=== PATIENT | male | born 1985 | race Caucasian/White ===

== ENCOUNTER 2017-11-28 09:51 | Emergency (ER) | payer BC, SELFPAY ==
--- NOTE | 2017-11-28 10:08 | XR_ITS ---
XR ankle LT min 3V Patient Age: 32 years: Male HISTORY: ITS.REASON: FELL AT HOME TECHNIQUE: 3 views left ankle COMPARISON :None available FINDINGS The left ankle is intact with no fracture nor dislocation. Ankle mortise with normal relationships. The medial, lateral and posterior malleolus intact. Only scant if any soft tissue swelling overlying the lateral malleolus. Dome of talus intact. IMPRESSION: Negative left ankle. No fracture nor dislocation
--- NOTE | 2017-11-28 10:08 | XR_ITS ---
XR humerus RT, XR elbow RT min 3V Patient Age: 32 years: Male HISTORY: ITS.REASON: FELL AT HOME TECHNIQUE: Right elbow: 3 view right elbow Right humerus: 2 views AP lateral COMPARISON :None available ======== RIGHT ELBOW 3 views Right elbow, intact with no fracture nor effusion evident. The joint spaces well-maintained. Bones well mineralized. Anterior fat pad appears normal. Radial head intact. ...... IMPRESSION: RIGHT elbow intact with no fracture evident. ======== RIGHT HUMERUS 2 views . The humerus is intact with no fracture evident. The bones well mineralized and appear satisfactory. The limited views of the elbow unremarkable on this humerus study as well 2 views of right shoulder limited but grossly unremarkable on this humerus study. Small bone island at superior humeral head noted ...... IMPRESSION - RIGHT humerus intact. No fracture No significant acute findings at either right elbow or right humerus
[2017-11-28 10:51] VITALS: BP 135/83; PULSE 91; RESP 20; TEMP 36.7; O2SAT 95; BMI 31.0
--- NOTE | 2017-11-28 11:47 | HMH.EDUTC ---
[facility] [place]ression: Left ankle sprain Qualifiers: Encounter type: initial encounter Involved ligament of ankle: other ligament Qualified Code(s): S93.492A - Sprain of other ligament of left ankle, initial encounter Contusion of right upper arm Qualifiers: Encounter type: initial encounter Qualified Code(s): S40.021A - Contusion of right upper arm, initial encounter Fall down stairs Qualifiers: Encounter type: initial encounter Qualified Code(s): W10.8XXA - Fall (on) (from) other stairs and steps, initial encounter Disposition: Home, Self-Care Condition on Discharge: Good Instructions: DI for Ankle Sprain, DI for Contusion, How To Perform RICE (Rest, Ice, Compress, Elevate), How to Use Crutches Additional Instructions: * weight bearing as tolerated. if painful, don't ambulate. * Rest * ice 15-20 mins 3-4 times a day * Jay wrap and brace on ankle for support and swelling unless in shower. Be sure not too tight but not too loose either * Elevate as discussed as much as possible to help reduce swelling and therefore, pain * Ibuprofen every 6 hours as needed for pain and inflammation. If you need something more, you can take tylenol every 4 hours as needed as long as your primary care provider has told you it is ok to take both. Referrals: Catarino Cannon APRN [Primary Care Provider] - (IMMEDIATELY for new or worsening symptoms OR no noticeable improvement over the next 3-5 days) Time of Disposition: 12:39 Medical Decision Making Vital Signs: 11/28/17 10:51 Temperature 98.1 F Temperature Source Temporal Artery Scan Pulse Rate [Right Radial] 91 H Respiratory Rate 20 Blood Pressure [Right Arm] 135/83 Blood Pressure Mean [Right Arm] 100 Blood Pressure Source [Right Arm] Automatic Cuff Blood Pressure Position [Right Arm] Sitting 02 Sat by Pulse Oximetry 95 Oxygen Delivery Method Room Air - Radiology Data #1 Image(s): Humerus (right), Elbow (right), Ankle (left) Image Reviewed: Yes I have reviewed radiologist's interpretation Preliminary Findings: Normal/NAD - Estuardo Inquiry Pt receiving controlled substance: No [facility] [place] - General Stated complaint: AO 11/28/17@0852 fell hurt right arm and rt. ankle Time Seen by Provider: 11/28/17 11:49 Mode of Arrival: Family Vehicle Source of Information: Patient Limitations: No Limitations Description of Symptoms (Recalled from Triage Doc. by RN): pt fell and injured left ankle and right elbow/humerus. HEENT Symptoms (Recalled from RN notes): No Resp Symptoms (Recalled from RN notes): No Skin Symptoms (Recalled from RN notes): No MS Symptoms (Recalled from RN notes): Yes (left ankle, right elbow/humerus) Functional Status (Recalled from RN notes): na - History of Present Illness Provider Complaint: c/o right upper arm/elbow pain and left ankle pain. Was trying to move a stove into the basement on his own this morning around 0800. Isn't sure what happen but he ended up falling down the steps and stove came down with him. Denies head injury and only concern is right arm and left ankle. Otherwise I am fine . No treatment before arrival. Ambulating but slow . ankle pain worse with ambulation but full ROM. Right UE pain worse with full extension and once this morning, starting to fall limping so used right arm to stabilize self on wall. - Related Data Allergies Allergy/AdvReac Type Severity Reaction Status Date / Time No Known Allergies Allergy Verified 11/28/17 10:56 - Worker's Comp Is this a Worker's Comp case?: No [facility] History I have reviewed the patient's past medical history: Yes (denies PMHx) Medical History: Denies:: Diabetes Mellitus Type 2, Hypertension Laterality Cases: Bilateral: Tonsillectomy - *Social History Smoking Status: Never smoker Alcohol Intake: current Alcohol Intake Frequency:: 0-2 drinks per day - Psychiatric History Expresses thoughts of harming self/others: None Suicide Plan Description: No Plan ROS Obtained
--- NOTE | 2017-11-28 11:50 | ED_ITS ---
[facility] [place] Clinical Impression: Left ankle sprain Qualifiers: Encounter type: initial encounter Involved ligament of ankle: other ligament Qualified Code(s): S93.492A - Sprain of other ligament of left ankle, initial encounter Contusion of right upper arm Qualifiers: Encounter type: initial encounter Qualified Code(s): S40.021A - Contusion of right upper arm, initial encounter Fall down stairs Qualifiers: Encounter type: initial encounter Qualified Code(s): W10.8XXA - Fall (on) (from ) other stairs and steps, initial encounter Disposition: Home, Self-Care Condition on Discharge: Good Instructions: DI for Ankle Sprain, DI for Contusion, How To Perform RICE (Rest , Ice, Compress, Elevate), How to Use Crutches Additional Instructions: * weight bearing as tolerated. if painful, don't ambulate. * Rest * ice 15-20 mins 3-4 times a day * Jay wrap and brace on ankle for support and swelling unless in shower. Be sure not too tight but not too loose either * Elevate as discussed as much as possible to help reduce swelling and therefore , pain * Ibuprofen every 6 hours as needed for pain and inflammation. If you need something more, you can take tylenol every 4 hours as needed as long as your primary care provider has told you it is ok to take both. Referrals: Catarino Cannon APRN [Primary Care Provider] - (IMMEDIATELY for new or worsening symptoms OR no noticeable improvement over the next 3-5 days) Time of Disposition: 12:39 Medical Decision Making Vital Signs: 11/28/17 10:51 Temperature 98.1 F Temperature Source Temporal Artery Scan Pulse Rate [Right Radial] 91 H Respiratory Rate 20 Blood Pressure [Right Arm] 135/83 Blood Pressure Mean [Right Arm] 100 Blood Pressure Source [Right Arm] Automatic Cuff Blood Pressure Position [Right Arm] Sitting 02 Sat by Pulse Oximetry 95 Oxygen Delivery Method Room Air - Radiology Data #1 Image(s): Humerus (right), Elbow (right), Ankle (left) Image Reviewed: Yes I have reviewed radiologist's interpretation Preliminary Findings: Normal/NAD - Estuardo Inquiry Pt receiving controlled substance: No [facility] [place] - General Stated complaint: AO 11/28/17@0852 fell hurt right arm and rt. ankle Time Seen by Provider: 11/28/17 11:49 Mode of Arrival: Family Vehicle Source of Information: Patient Limitations: No Limitations Description of Symptoms (Recalled from Triage Doc. by RN): pt fell and injured left ankle and right elbow/humerus. HEENT Symptoms (Recalled from RN notes): No Resp Symptoms (Recalled from RN notes): No Skin Symptoms (Recalled from RN notes): No MS Symptoms (Recalled from RN notes): Yes (left ankle, right elbow/humerus) Functional Status (Recalled from RN notes): na - History of Present Illness Provider Complaint: c/o right upper arm/elbow pain and left ankle pain. Was trying to move a stove into the basement on his own this morning around 0800. Isn't sure what happen but he ended up falling down the steps and stove came down with him. Denies head injury and only concern is right arm and left ankle. Otherwise I am fine . No treatment before arrival. Ambulating but slow . ankle pain worse with ambulation but full ROM. Right UE pain worse with full extension and once this morning, starting to fall limping so used right arm to stabilize self on wall. - Related Data Allergies Allergy/AdvReac Type Severity Reaction Status Date / Time No Known Allergies Allergy Verified 11/28/17 10:56
[2017-11-28 12:54] VITALS: BP 126/82; PULSE 75; RESP 18; TEMP 36.8; O2SAT 100
== END 2017-11-28 12:55 | disposition home or self-care (01) ==
PROVIDERS: Emergency Provider Nurse Practitioner Family; Family Provider Emergency Medicine; PCP Nurse Practitioner Family
DX: S93.492A Sprain of other ligament of left ankle, initial encounter (principal); S40.021A Contusion of right upper arm, initial encounter; W10.8XXA Fall (on) (from) other stairs and steps, initial encounter
CPT/HCPCS: 73060; 73080; 73610; 99202

== ENCOUNTER → 2019-08-17 09:37 | Outpatient (CLI) | payer BC, SELFPAY ==
[2019-08-17 10:39] LABS: Basophils % 0.4 % (0.1-2.0); Eosinophils # 0.1 K/mm3 (0.0-0.4); Eosinophils % 2.5 % (0.1-12.0); Hematocrit 45.5 % (42.0-52.0); Hemoglobin 15.7 g/dL (14.1-18.0); Lymphocytes # 1.5 K/mm3 (0.7-4.5); Lymphocytes % 27.6 % (10-50); Mean Corpuscular HGB Conc 34.4 g/dL (31.8-35.4); Mean Corpuscular Hemoglobin 31.3 pg (27.0-31.2); Mean Platelet Volume 8.5 fl (7.4-10.4); Monocytes # 0.4 K/mm3 (0.1-1.0); Monocytes % 6.7 % (1.7-9.3); Neutrophils # 3.4 K/mm3 (1.8-7.8); Neutrophils % 62.9 % (37.0-80.0); Platelet Count 217 K/mm3 (142-424); Red Cell Distribution Width 12.8 % (11.5-17.5); White Blood Count 5.4 K/mm3 (4.8-10.8)
[2019-08-17 12:31] LABS: Alanine Aminotransferase 50 U/L (12-78); Albumin Level 4.4 gm/dL (3.4-5.0); Alkaline Phosphatase 64 U/L (46-116); Anion Gap 14.5 mEq/L (5-15); Aspartate Amino Transferase 24 U/L (15-37); Bilirubin,Direct 0.1 mg/dL (0.0-0.2); Bilirubin,Indirect 0.4 mg/dL (0.0-0.9); Bilirubin,Total 0.5 mg/dL (0.2-1.0); Blood Urea Nitrogen 12 mg/dL (7-18); Calcium 9.7 mg/dL (8.5-10.1); Carbon Dioxide 27 mmol/L (21.0-32.0); Chloride 103 mmol/L (98-107); Chol/HDL Ratio 4.6 (1-3.5); Cholesterol 166 mg/dL (140-200); Creatinine,Serum 1.13 mg/dL (0.70-1.30); Estimated Glomerular Filt Rate 75 ml/min (>60); GFR (African American) 90 ML/MIN (>60); Glucose 82 mg/dL (74-106); HDL Cholesterol 36 mg/dL (27-67); LDL Cholesterol 89 mg/dL (0-130); Potassium 4.5 mmoL/L (3.5-5.1); Sodium 140 mmol/L (136-145); Thyroid Stimulating Hormone 1.12 uIU/ml (0.358-3.740); Total Protein,Serum 7.4 gm/dL (6.4-8.2); Triglycerides 204 mg/dL (30-200); VLDL Cholesterol 41 mg/dL (0-40)
== END ==
PROVIDERS: Visit Provider Nurse Practitioner Family
DX: R06.00 Dyspnea, unspecified (principal); R07.9 Chest pain, unspecified; R00.0 Tachycardia, unspecified; R06.09 Other forms of dyspnea; R07.8 Other chest pain; R07.89 Other chest pain
CPT/HCPCS: 36415; 80048; 80061; 80076; 84439; 84443; 85025

== ENCOUNTER → 2019-08-25 10:05 | Outpatient (CLI) | payer BC, SELFPAY ==
--- NOTE | 2019-08-25 10:08 | CA_ITS ---
APPROVED REPORT Exam: Exercise Treadmill Technologist: Nasima Gong, Ht: 5 ft 9 in Wt: 212 lbs BSA: 2.12 m2 HR: 71 bpm BP: 123/89 mmHg Rhythm: NSR Medical History Medical History: HTN Medications: Metoprolol,,,,, BaBY ASA,,,,, Cardiac Risk Factors: HTN Stress Test Details Test: Rey HR Resting HR: 85 bpm Max Heart Rate (APMHR): 187 bpm Max HR Achieved: 175 bpm Target HR (85% APMHR): 158 bpm % of APMHR: 93 Recovery HR: 146 bpm BP Resting BP: 123.0/89.0 mmHg Max BP: 160.0/90.0 mmHg Recovery BP: 159.0/78.0 mmHg ECG Resting ECG: NSR Clinical Reason for Termination: Dyspnea Exercise duration: 10:31 min Highest Stage Achieved: Exercise capacity: 12.8 METs Stress ECG Conclusion MAX HEART RATE 175 BPM WHICIS 110% OF PM FOR AGE. METS = 12.8. TEST STOPPED DUE TO SOA AND LEG PAIN. NO CHEST PAIN. RARE PVC AT PEAK STRESS. NO ST-T CHANGES. NEGATIVE TEST Test Summary REST . . . . . . . Standing REST . . . . . . . Sitting REST 10:01 0.0 0.0 85 . 123/ 89 . . Stage 1 01:00 10.0 1.7 101 . . . . Stage 1 02:00 10.0 1.7 106 . . . . Stage 1 03:00 10.0 1.7 110 . 130/ 90 . . Stage 2 01:00 12.0 2.5 119 . . . . Stage 2 02:00 12.0 2.5 129 . . . . Stage 2 03:00 12.0 2.5 123 . 152/ 90 . . Stage 3 01:00 14.0 3.4 136 . . . . Stage 3 02:00 14.0 3.4 145 . . . . Stage 3 03:00 14.0 3.4 150 . 160/ 90 . . Stage 4 01:00 16.0 4.2 169 . . . . Stage 4 01:31 16.0 4.2 175 . . . Stop exercise at 10:31 RECOVERY 01:00 0.0 0.0 159 . . . . RECOVERY 02:00 0.0 0.0 144 . . . . RECOVERY 03:00 0.0 0.0 131 . . . . RECOVERY 04:00 0.0 0.0 121 . 159/ 78 . . RECOVERY 05:00 0.0 0.0 117 . 159/ 78 . . RECOVERY 05:18 0.0 0.0 118 . 141/ 83 . . Electronically signed by : Gabriel Robison, 08/25/2019 15:30:17
== END ==
PROVIDERS: PCP Emergency Medicine; Visit Provider Nurse Practitioner Family
DX: R06.00 Dyspnea, unspecified (principal); R07.9 Chest pain, unspecified
CPT/HCPCS: 93017; 93306

== ENCOUNTER → 2019-10-12 06:39 | Outpatient (CLI) | payer BC, SELFPAY ==
--- NOTE | 2019-10-12 | CA_ITS ---
APPROVED REPORT Exam: Pharmacologic Technologist: Rosalina Hurst Ht: 5 ft 9 in Wt: 220 lbs BSA: 2.15 m2 HR: 95 bpm BP: 126/88 mmHg Indications: CP, SOB Medical History Medications: Metoprolol,,,,, Asa,,,,, Allergies: No known drug allergies Cardiac Risk Factors: HTN, FHX of CAD, Smoking Stress Test Details Test: LEXISCAN HR Resting HR: 96 bpm Max Heart Rate (APMHR): 187 bpm Max HR Achieved: 128 bpm Target HR (85% APMHR): 158 bpm % of APMHR: 68 Recovery HR: 103 bpm BP Resting BP: 126/88 mmHg Max BP: 152/84 mmHg Recovery BP: 128.0/84.0 mmHg ECG Resting ECG: NSR Clinical Exercise duration: 04:00 min Highest Stage Achieved: Exercise capacity: 1.0 METs Stress ECG Conclusion Patient was switched from exercise to Nia due to abrupt stop due to leg pain. Miild malaise, mild pain below xiphoid process. No arrhythmias or ectopy. No significant ST changes. Unremarkable Lexiscan stress. Images reported seperately. Test Summary REST 02:05 . . 96 . 126/ 88 . . Stage 1 01:00 . . 126 . . . . Stage 2 01:00 . . 118 . 134/ 90 . . Stage 3 01:00 . . 108 . 152/ 84 . . Stage 4 01:00 . . 106 . 128/ 84 . Stop exercise at 04:00 RECOVERY 01:00 . . 101 . 128/ 84 . . RECOVERY 02:00 . . 99 . 126/ 89 . . RECOVERY 03:00 . . 99 . 126/ 89 . . RECOVERY 04:00 . . 93 . 127/ 90 . . RECOVERY 05:00 . . 102 . 124/ 89 . . RECOVERY 05:17 . . 96 . 124/ 89 . . Electronically signed by : Chacorta Kevin, 10/12/2019 13:39:00
--- NOTE | 2019-10-12 06:47 | NM_ITS ---
APPROVED REPORT Exam: Nuclear Stress Test Indication: Chest pain, SOB, HTN, Tobacco use, Family history Patient Location: Outpatient Stress Tech: Rosalina Hurst ID Tech:Yamileth Sesay, ARRT, RT (R)(N) Ht: 5 ft 9 in Wt: 220 lbs HR: 75 bpm BP: 158/98 mmHg BSA: 2.15 m2 BMI: 32.4 History: Chest pain, SOB, HTN, Tobacco use, Family history Procedure: Patient received a 0.4 mg of intravenous Lexiscan, resting heart rate 75 bpm, resting blood pressure 158/98 mmHg, with Lexiscan maximum heart rate achived was 114 bpm which is Less than 85 % of the maximum predicted heart rate and blood pressure was 170/86 mmHg. Electrocardiogram Resting electrocardiogram showed sinus rhythm, with Lexiscan there is less than 1.[address] segment depression noted from the baseline EKG. The EKG portion of the Lexiscan Myoview is nondiagnostic. Cardiac Stress and Resting SPECT Images: Cardiac Stress and Resting SPECT images were obtained using technetium 99m Myoview 31.8 mCi stress and 10.68 mCi at rest. Gated SPECT with analysis of segmental wall motion and calculation of the ejection fraction also done. Cardiac stress and resting SPECT images show mild fixed defect in the inferior wall with normal contractility and the gated SPECT is likely secondary to soft tissue attenuation, no reversible ischemia seen. Computer derived ejection fraction is 55% with no regional wall motion abnormality, right ventricle is normal size and contractility. Conclusion: 1. The EKG portion of the Lexiscan Myoview is nondiagnostic. 2. No scintigraphic evidence of reversible ischemia seen, computer derived ejection fraction is 55% with no regional wall motion abnormality, right ventricle is normal size and contractility. 3. Likely normal Lexiscan Myoview study. Electronically signed by : Chacorta Kevin, 10/12/2019 14:31:19
--- NOTE | 2019-10-12 07:00 | HMH.ITSHM ---
Current Home Medications as stated by this patient Amol Swift or insurance healthcare representative. []METOPROLOL ASA
== END ==
PROVIDERS: PCP Emergency Medicine; Visit Provider Urology
DX: R06.09 Other forms of dyspnea (principal); R07.89 Other chest pain
CPT/HCPCS: 78452; 93017; A9502; J2785

== ENCOUNTER → 2019-11-28 08:38 | Outpatient (CLI) | payer BC, SELFPAY ==
[2019-11-28 10:34] LABS: Anion Gap 14.6 mEq/L (5-15); Blood Urea Nitrogen 9 mg/dL (7-18); Calcium 9.1 mg/dL (8.5-10.1); Carbon Dioxide 27 mmol/L (21.0-32.0); Chloride 104 mmol/L (98-107); Creatinine,Serum 1.24 mg/dL (0.70-1.30); Estimated Glomerular Filt Rate 67 ml/min (>60); GFR (African American) 81 ML/MIN (>60); Glucose 97 mg/dL (74-106); Potassium 4.6 mmoL/L (3.5-5.1); Sodium 141 mmol/L (136-145)
== END ==
PROVIDERS: Visit Provider Physician Assistant
DX: R00.2 Palpitations (principal); R06.09 Other forms of dyspnea; R07.89 Other chest pain
CPT/HCPCS: 36415; 80048

== ENCOUNTER → 2019-12-20 14:14 | Outpatient (CLI) | payer BC, SELFPAY ==
--- NOTE | 2019-12-20 14:15 | MR_ITS ---
PROCEDURE: MR KNEE LT WO CON CLINICAL INDICATION: Left knee injury Left lateral knee pain COMPARISON: XR KNEE LT 3V from 12/01/2019 TECHNIQUE: Routine multiplanar multi echo sequences are performed without gadolinium enhancement. FINDINGS: The cruciate ligaments and medial collateral ligament have an unremarkable appearance. There is slight increase signal intensity of the fibula low collateral ligament suggesting a mild sprain. No evidence of meniscal tear the. The patellar tendon and quadriceps tendon are intact. Patellar cartilage is preserved. There is increased T2 signal involving the anterior aspect of the lateral tibial plateau with a curvilinear area of decreased T1 and increased T2 signal in the subcortical region consistent with a nondepressed lateral tibial plateau fracture. Along the medial aspect of the distal femur there is a well-circumscribed sclerotic lesion as described on the previous radiograph. This is cortical in nature hypointense on T1 and T2 in may be due to a regressed nonossifying fibroma. Continued radiographic follow-up suggested. IMPRESSION: 1. Nondepressed lateral tibial plateau fracture involving the anterior aspect of the lateral tibial plateau with associated bone bruise. 2. Mild sprain of the fibular collateral ligament. 3. No meniscal tear or cruciate ligament tear apparent. 4. Benign-appearing sclerotic lesion of the distal femur medially Dictated by: Tung Interiano MD 12/22/2019 07:03 Electronically signed by Tung Interiano MD in [place] 12/22/2019 07:03
== END ==
PROVIDERS: PCP Physician Assistant; Visit Provider Orthopaedic Surgery
DX: S89.92XA Unspecified injury of left lower leg, initial encounter (principal)
CPT/HCPCS: 73721

== ENCOUNTER 2019-12-26 10:37 | Outpatient (RCR) | payer BC, SELFPAY | END 2019-12-26 11:00 | disposition home or self-care (01) | LOC: PT 10:37 | PROVIDERS: Visit Provider Orthopaedic Surgery | DX: S89.92XD Unspecified injury of left lower leg, subsequent encounter | CPT/HCPCS: 97760 ==

== ENCOUNTER → 2020-01-31 12:32 | Outpatient (CLI) | payer BC, SELFPAY ==
--- NOTE | 2020-01-31 12:36 | XR_ITS ---
PROCEDURE: XR KNEE LT 3V CLINICAL INDICATION: left tibial plateau fracture fu Follow-up fracture, pain COMPARISON: XR KNEE LT 3V from 12/01/2019 MR KNEE LT WO CON from 12/20/2019 FINDINGS: No obvious fracture or dislocation. The joint spaces are well-preserved. No significant degenerative/arthritic changes. No erosive changes evident. Other findings:No change in the sclerotic lesion of the distal femur IMPRESSION: The tibial plateau fracture noted on the recent MRI is below limits of resolution on the plain film. No significant change from the previous exam Dictated by: Tung Interiano MD 01/31/2020 13:43 Electronically signed by Tung Interiano MD in [place] 01/31/2020 13:43
== END ==
PROVIDERS: PCP Emergency Medicine; Visit Provider Orthopaedic Surgery
DX: S82.142A Displaced bicondylar fracture of left tibia, initial encounter for closed fracture (principal)
CPT/HCPCS: 73562

== ENCOUNTER → 2020-03-12 13:55 | Outpatient (CLI) | payer BC, SELFPAY ==
--- NOTE | 2020-03-12 13:58 | XR_ITS ---
PROCEDURE: XR KNEE LT 3V CLINICAL INDICATION: left tibial plateau fracture follow up COMPARISON: XR KNEE LT 3V from 12/01/2019 MR KNEE LT WO CON from 12/20/2019 XR KNEE LT 3V from 01/31/2020 FINDINGS: The subtle lateral tibial plateau fracture seen on the previous MRI scan 12/20/2019 is below resolution on the current image. There is no deformity or abnormal sclerosis of the lateral tibial plateau. The medial tibial plateau appears normal. The head of the fibula is normal. The femoral condyles are unremarkable. Again noted is the somewhat lobulated extrinsic mildly sclerotic lesion of the diametaphyseal zone of the distal femur and a nonossifying fibroma is a possibility. Melorheostosis is a consideration as well though usually this causes a more sclerotic appearance. The patella is intact, see no effusion. The joint spaces are well-preserved. No significant degenerative/arthritic changes. No erosive changes evident. Other findings:None. IMPRESSION: No acute findings. No residual deformity or trabecular alteration of the lateral tibial plateau fracture seen on the previous MRI scan. Dictated by: Dr. Cj Gaines MD 03/12/2020 14:[address] Cj Gaines MD in [place] 03/12/2020 14:22
== END ==
PROVIDERS: PCP Emergency Medicine; Visit Provider Orthopaedic Surgery
DX: S82.142A Displaced bicondylar fracture of left tibia, initial encounter for closed fracture (principal)
CPT/HCPCS: 73562

== ENCOUNTER → 2020-03-29 11:17 | Outpatient (CLI) | payer BC, SELFPAY | PROVIDERS: PCP Emergency Medicine; Visit Provider Nurse Practitioner Family | DX: G47.30 Sleep apnea, unspecified (principal); R40.0 Somnolence; R06.83 Snoring; R53.83 Other fatigue; I10 Essential (primary) hypertension; R60.9 Edema, unspecified | CPT/HCPCS: 95806 ==

== ENCOUNTER 2020-05-10 01:25 | Emergency (ER) | payer BC, SELFPAY ==
[2020-05-10 01:36] VITALS: BP 159/101; PULSE 111; RESP 16; TEMP 38.6; O2SAT 98; BMI 32.8
--- NOTE | 2020-05-10 01:41 | XR_ITS ---
PROCEDURE: XR CHEST PORTABLE CLINICAL HISTORY: fever unk origin COMPARISON: No exams were available for comparison FINDINGS: The cardiomediastinal silhouette and pulmonary vascularity are within normal limits. The lungs are clear without infiltrates, suspicious nodules, or pleural effusions. No acute bony abnormalities. IMPRESSION: No acute findings. Dictated by: Dr. Cj Gaines MD 05/10/2020 10:[address] Cj Gaines MD in [place] 05/10/2020 10:23
--- NOTE | 2020-05-10 01:41 | CT_ITS ---
PROCEDURE: CT ABDOMEN PELVIS W CON CLINICAL INDICATION: band-like pain around abd Low back pain, mid to lower abdominal pain with fever COMPARISON: PELWO CT PELVIS W/O CONTRAST from 09/12/2013 TECHNIQUE: IV Contrast: 75ML OPTIRAY 350 Oral Contrast None Axial images obtained with sagittal and coronal reformats. All CT scans at the facility use one or more dose reduction, viz: automated exposure control, ma/kV adjustment per patient size (including targeted exams where dose is matched to indication, i.e. head), or iterative reconstruction technique. FINDINGS: LOWER THORAX: No acute finding ABDOMEN & PELVIS: The liver, adrenal glands, pancreas, and kidneys have an unremarkable appearance. There is mild splenomegaly at 14 cm. No intestinal obstruction or free air. There is mild amount of retained colonic feces. Unremarkable appendix. There are several small mesenteric and right lower quadrant lymph nodes which measure up to 1.5 cm. No pelvic mass or abnormal fluid collection. No acute bony findings. There is a stable sclerotic focus involving the ilium on the left not significantly changed from 09/12/2013 and a stable small lucency of the right ilium also not significantly changed. Small sclerotic focus involves the right femoral head unchanged consistent with bone island.. Small right inguinal hernia containing fat. IMPRESSION: 1. Several small scattered mesenteric and right lower quadrant lymph nodes nonspecific but could be seen with mesenteric adenitis. 2. Mild amount of retained colonic feces. 3. Other nonacute findings as described above. Dictated by: Tung Interiano MD 05/10/2020 05:20 Electronically signed by Tung Interiano MD in [place] 05/10/2020 05:20
[2020-05-10 01:58] LABS: Basophils % 0.5 % (0.1-2.0); Eosinophils # 0.3 K/mm3 (0.0-0.4); Eosinophils % 3.1 % (0.1-12.0); Hematocrit 40.3 % (42.0-52.0); Hemoglobin 14.9 g/dL (14.1-18.0); Lymphocytes # 1.7 K/mm3 (0.7-4.5); Lymphocytes % 19.7 % (10-50); Mean Corpuscular HGB Conc 36.9 g/dL (31.8-35.4); Mean Corpuscular Hemoglobin 33.1 pg (27.0-31.2); Mean Corpuscular Volume 89.9 fl (80-94); Mean Platelet Volume 7.6 fl (7.4-10.4); Monocytes # 0.6 K/mm3 (0.1-1.0); Monocytes % 6.8 % (1.7-9.3); Neutrophils # 6.1 K/mm3 (1.8-7.8); Platelet Count 174 K/mm3 (142-424); Red Blood Count 4.48 M/mm3 (4.60-6.20); Red Cell Distribution Width 13.6 % (11.5-17.5); White Blood Count 8.7 K/mm3 (4.8-10.8)
[2020-05-10 02:10] VITALS: BP 147/89; PULSE 81; RESP 18; O2SAT 98
[2020-05-10 02:10] LABS: Chloride 103 mmol/L (98-107)
[2020-05-10 02:11] LABS: Potassium 3.8 mmoL/L (3.5-5.1); Sodium 138 mmol/L (136-145)
[2020-05-10 02:13] LABS: Amylase 55 U/L (30-110); Lactic Acid 0.8 mmol/L (0.7-2.1)
[2020-05-10 02:14] LABS: Alanine Aminotransferase 54 U/L (12-78); Albumin Level 4.4 g/dl (3.5-5.0); Albumin/Globulin Ratio 1.5 (1.1-1.8); Alkaline Phosphatase 70 U/L (38-126); Anion Gap 11.8 mEq/L (5-15); Aspartate Amino Transferase 39 U/L (17-59); Bilirubin,Total 0.6 mg/dl (0.2-1.3); Blood Urea Nitrogen 10 mg/dl (9-20); Calcium 9.3 mg/dl (8.4-10.2); Carbon Dioxide 27 mmol/L (22.0-30.0); Creatinine Clearance Estimated 136 mL/min (50-200); Estimated Glomerular Filt Rate 77 ml/min (>60); GFR (African American) 93 ML/MIN (>60); Glucose 117 mg/dl (74-100); Lipase 86 U/L (23-300); Total Protein,Serum 7.4 g/dl (6.3-8.2)
--- NOTE | 2020-05-10 02:25 | HMH.EDFEV ---
ED Disposition Clinical Impression: Acute febrile illness, Acute mesenteric adenitis Disposition: Home, Self-Care Condition on Discharge: Good Instructions: DI for Fever (Symptom) -- Adult Additional Instructions: fluids and see pcp for follo wup Prescriptions: levoFLOXacin [Levaquin 500mg tab] 500 mg PO DAILY #7 tab Transmission Status: Pending to [id number] Referrals: Willy Dorsey MD [Primary Care Provider] - - Critical Care Critical Care Time: No Attestation: On 05/10/20, the high probability of a clinically significant, sudden or life threatening deterioration of the following system(s) required my full and direct attention, intervention and personal management. The time I documented below is in addition to time spent performing reported procedures but includes the following listed in this critical care notation. Medical Decision Making - Medical Records Medical records reviewed: Yes: I reviewed the patient's medical records. - Estuardo Inquiry Pt receiving controlled substance: No Vital Signs: 05/10/20 01:36 Temperature 101.4 F H Temperature Source Oral Pulse Rate [Right Brachial] 111 H Respiratory Rate 16 Blood Pressure [Right Arm] 159/101 H Blood Pressure Mean [Right Arm] 120 Blood Pressure Source [Right Arm] Automatic Cuff Blood Pressure Position [Right Arm] Sitting 02 Sat by Pulse Oximetry 98 Oxygen Delivery Method Room Air - Lab Data Lab results reviewed: Yes: I reviewed the patient's lab results. Lab Results 05/10/20 01:45: WBC 8.7, RBC 4.48 L, Hgb 14.9, Hct 40.3 L, MCV 89.9, MCH 33.1 H, MCHC 36.9 H, RDW 13.6, Plt Count 174, MPV 7.6, Neut % (Auto) 70.0, Lymph % (Auto) 19.7, [place] % (Auto) 6.8, Eos % (Auto) 3.1, Baso % (Auto) 0.5, Neut # (Auto) 6.1, Lymph # (Auto) 1.7, [place] # (Auto) 0.6, Eos # (Auto) 0.3, Baso # (Auto) 0.0 05/10/20 01:45: Sodium 138, Potassium 3.8, Chloride 103, Carbon Dioxide 27, Anion Gap 11.8, BUN 10, Creatinine 1.10, Estimated Creat Clear 136, Estimated GFR 77, Est GFR ( Amer) 93, Glucose 117 H, Calcium 9.3, Total Bilirubin 0.6, AST 39, ALT 54, Alkaline Phosphatase 70, Troponin I < 0.01, Total Protein 7.4, Albumin 4.4, Globulin 3.0, Albumin/Globulin Ratio 1.5, Amylase 55, Lipase 86 05/10/20 01:45: Lactate 0.8 05/10/20 03:08: Urine Color Yellow, Urine Appearance Clear, Urine pH 6.0, Ur Specific [place] <= 1.005, Urine Protein Negative, Urine Glucose (UA) Negative, Urine Ketones Negative, Urine Blood Negative, Urine Nitrate Negative, Urine Bilirubin Negative, Urine Urobilinogen 0.2, Ur Leukocyte Esterase Negative, Urine WBC Occasional, Urine Bacteria Trace 05/10/20 03:08: Influenza Type A Ag Negative, Influenza Type B Ag Negative 05/10/20 03:08: Group A Strep Rapid Negative Result diagrams: 05/10/20 01:45 05/10/20 01:45 Orders (Tests/Meds): ED MEDICATIONS Generic Name Dose Route Start Last Admin Trade Name Freq PRN Reason Stop Dose Admin Sodium Chloride 1,000 mls @ 999 mls/hr 05/10/20 02:00 05/10/20 01:48 Sod Chlor 0.9% 1000ml Bag IV 05/10/20 03:00 999 mls/hr .Q1H1M [facility] Administration Discontinued Medications Generic Name Dose Route Start Last Admin Trade Name Freq PRN Reason Stop Dose Admin Acetaminophen 1,000 mg 05/10/20 01:46 05/10/20 01:48 Tylenol 500mg Tablet PO 05/10/20 01:47 1,000 mg ONCE ONE Administration Ketorolac Tromethamine 30 mg 05/10/20 01:46 05/10/20 01:48 Toradol 30mg/Ml Vial IV 05/10/20 01:47 30 mg ONCE ONE Administration Methylprednisolone Sodium Succinate 125 mg 05/10/20 01:46 05/10/20 01:48 Solu-Medrol 125mg/2ml Vial IV 05/10/20 01:47 125 mg ONCE ONE Administration ORDERS Category Date Time Status CT abdomen pelvis w con Stat Cat Scan 05/10/20 01:41 Ordered XR chest portable Stat Exams 05/10/20 01:41 Ordered SARS-CoV-2, JEOVANY Stat Lab 05/10/20 02:43 Received Troponin I Q3H Lab 05/10/20 04:45 Ordered Troponin I Q3H Lab 05/10/20 07:45 Ordered Strep Scr
[2020-05-10 02:33] LABS: Troponin I < 0.01 ng/ml (0.00-0.034)
[2020-05-10 02:35] VITALS: BP 141/73; PULSE 75; RESP 19; O2SAT 99
--- NOTE | 2020-05-10 02:45 | PC.NURSE ---
pt with rad
--- NOTE | 2020-05-10 03:12 | PC.NURSE ---
return from rad at this time
--- NOTE | 2020-05-10 03:13 | PC.NURSE ---
swabs and urine sent to lab
[2020-05-10 03:15] LABS: Microscopic, Urine URINE MICROSCOPIC (MICROSCOPIC)
[2020-05-10 03:27] VITALS: BP 150/79; PULSE 80; RESP 16; TEMP 37.4; O2SAT 99
[2020-05-10 03:38] LABS: Strep Scrn Group A (Rapid) Negative (Negative)
[2020-05-10 03:40] LABS: Appearance,Urine CLEAR (Clear); Bilirubin,Urine Negative (Negative); Blood, Urine Negative (Negative); Color,Urine YELLOW (Yellow); Glucose,Urine (UA) Negative (Negative); Ketones,Urine Negative (Negative); Leukocyte Esterase,Urine Negative (Negative); Nitrate,Urine Negative (Negative); Protein,Urine Negative (Negative); Specific Gravity, Urine <= 1.005 (1.005-1.030); Urobilinogen,Urine 0.2 EU/dl (0.2)
[2020-05-10 03:47] LABS: Bacteria,Urine Trace /lpf; WBC,Urine Occasional #/hpf (0-3)
[2020-05-10 04:13] VITALS: BP 142/79; PULSE 81; RESP 16; TEMP 36.8; O2SAT 99
[2020-05-11 13:00] LABS: Covid-19 Nasal PCR Sendout Lex Not Detected
== END 2020-05-10 04:15 | disposition home or self-care (01) ==
PROVIDERS: Emergency Provider Emergency Medicine; PCP Emergency Medicine
DX: I88.0 Nonspecific mesenteric lymphadenitis (principal)
CPT/HCPCS: 71045; 74177; 80053; 81001; 82150; 83605; 83690; 84484; 85025; 87275; 87276; 87430; 96365; 96375; 99283; 99284; Q9967; U0004

== ENCOUNTER → 2020-08-05 16:51 | Outpatient (CLI) | payer OTHER, SELFPAY | PROVIDERS: PCP Physician Assistant; Visit Provider Physician Assistant | DX: Z03.818 Encounter for observation for suspected exposure to other biological agents ruled out (principal) | CPT/HCPCS: U0003 ==

== ENCOUNTER → 2021-10-20 10:44 | Outpatient (CLI) | payer OTHER, SELFPAY ==
--- NOTE | 2021-10-20 10:44 | FL_ITS ---
PROCEDURE: FL BARIUM SWALLOW MODIFIED CLINICAL INDICATION: Dysphagia COMPARISON: No exams were available for comparison TECHNIQUE: Patient administered varying consistencies of barium contrast, while viewed in lateral position under real-time fluoroscopy with cine recording. FLUOROSCOPY TIME: The study was performed in conjunction with speech pathologist. Please see that report & recommendations. FINDINGS: Patient was given varying consistencies of barium. No aspiration or penetration. No significant stasis or delay.. IMPRESSION: Unremarkable modified barium swallow. Please see speech pathologist report and recommendations. Dictated by: Tung Interiano MD 10/21/2021 09:08 Tung Interiano MD in [place] 10/21/2021 09:08
--- NOTE | 2021-10-20 11:31 | HMH.SLMBS2 ---
Speech & Language Evaluation Speech/Language Mod Barium Swallow Start: 10/20/21 11:15 Freq: once Status: Complete Protocol: Document 10/20/21 11:15 TANIAYENYCHARLENENABOR (Rec: 10/20/21 11:31 CWGIANNAEIN [id number]) General Information General Current Food Consistancy Regular,Thin Liquids Dentition Good Dentition Oxygen Status Room Air Patient Orientation Person,Place,Time,Situation Ability to Follow Directions Excellent Communication Ability No Impairment MBS Recommendations Diet Dietary Recommendations Regular,Thin Liquids Treatment/Strategies Strategy/Precaution Recommend Sitting Upright (90 deg) Referrals/Other Recommended Referrals GI Consult Mod Barium Swallow Impressions Summary and Impressions Oral Phase Impression No Impairment (WFL) Oral Phase Summary Adequate mastication, no oral residue noted. Pharyngeal Phase Impression No Impairment (WFL) Pharyngeal Phase Summary No penetration or aspiration noted on the study, no pharyngeal residue present. Speech/Language MBS Assessment/Goals/Plan Assessment Date of Evaluation: 10/20/21 Evaluation Type Initial Certification Assessment/Problems Sensation of food and pills sticking per pt report. Does Patient Qualify for Service No Qualify/Failure Comment Swallow function is WNL, no further skilled speech therapy services warranted at this time. Recommendations PHYSICIAN CERTIFICATION: The specified therapy services are required, authorized, and reviewed every 30 days. Diet Recommendations Normal Liquid Type Recommendations Normal/Thin Dysphagia Swallow Precautions/Strategies Sitting Upright (90 deg) Plan Pt/Guardian verbally ack understanding Yes of dx/prognosis/goals Pt/Guardian verbally ack understanding Yes of/consent to tx prog G -code Required No Education Instructions provided MBSS results, GI recommended referral. Pt/Caregiver able to recall information Able to recall/restate Reinforcement needed No Mod Barium Swallow Setup Exam Setup Level of Consciousness Awake,Alert Position (degrees) 90 Mod Barium Swallow-Lat View Textures Lateral View Food Presentation Thin Liquid via Cup,Pureed Food- Thin,Mech. Soft Food- Regular,Barium Tablet,Regular Food,Pudding Oral Phase Labial Closure No Impairment (WFL) Bolus Formation Pooling L/R No Impairment (WFL) Bolus Formation under Tongue No Impairment (WFL) Bolus Format
== END ==
PROVIDERS: PCP Physician Assistant; Visit Provider Nurse Practitioner Family
DX: R13.10 Dysphagia, unspecified (principal)
CPT/HCPCS: 70371; 92611

== ENCOUNTER 2022-11-26 17:54 | Emergency (ER) | payer BC, SELFPAY ==
--- NOTE | 2022-11-26 18:07 | XR_ITS ---
PROCEDURE INFORMATION: Exam: XR Right Forearm Exam date and time: 11/26/2022 6:15 PM Age: 37 years old Clinical indication: Pain; Lower or forearm; Right; Additional info: Pain. Fall. Posterior elbow/forearm pain TECHNIQUE: Imaging protocol: Radiologic exam of the Right forearm. Views: 2 views. COMPARISON: CR XR HAND RT MIN 3V 11/26/2022 6:13 PM FINDINGS: Bones/joints: The osseous structures of the forearm are unremarkable. The distal radius and the distal ulna are unremarkable. Visualized portions of the carpus normal. The distal radial ulnar joint normal. Visualized portions of the elbow normal. Soft tissues: Normal. IMPRESSION: Normal forearm. No fracture. No foreign body.
--- NOTE | 2022-11-26 18:07 | XR_ITS ---
PROCEDURE INFORMATION: Exam: XR Right Elbow Exam date and time: 11/26/2022 6:16 PM Age: 37 years old Clinical indication: Pain; Elbow; Right; Additional info: Pain. Fall. Posterior elbow/forearm pain TECHNIQUE: Imaging protocol: Radiologic exam of the Right elbow. Views: 3 or more views. COMPARISON: CR ELBOWCMRT XR elbow RT min 3V 11/28/2017 11:40 AM FINDINGS: Bones/joints: No fracture. No displacement of the posterior fat pad. Radial head unremarkable. Medial and lateral epicondyles normal. Soft tissues: Normal. Other findings: medial and lateral columns normal. IMPRESSION: No fracture.
--- NOTE | 2022-11-26 18:07 | XR_ITS ---
PROCEDURE INFORMATION: Exam: XR Right Wrist Exam date and time: 11/26/2022 6:11 PM Age: 37 years old Clinical indication: Pain; Wrist; Right; Additional info: Pain. Fall. Posterior elbow/forearm pain TECHNIQUE: Imaging protocol: Radiologic exam of the Right wrist. Views: 3 or more views. COMPARISON: CR ELBOWCMRT XR elbow RT min 3V 11/28/2017 11:40 AM FINDINGS: Bones/joints: Radial ulnar joint normal. Carpus is normal. Metacarpals normal. Visualized portions of the phalanges normal. No triquetral fracture. Soft tissues: Soft tissue swelling about the pronator quadratus muscle although a fracture is not visualized. Correlate clinically. Consider CT if indicated. IMPRESSION: 1. Soft tissue swelling about the pronator quadratus muscle although a fracture is not visualized. Correlate clinically. Consider CT if indicated. 2. No clearly visualized fracture.impression.
--- NOTE | 2022-11-26 18:07 | XR_ITS ---
PROCEDURE INFORMATION: Exam: XR Right Hand Exam date and time: 11/26/2022 6:13 PM Age: 37 years old Clinical indication: Pain; Hand; Right; Additional info: Pain. Fall. Posterior elbow/forearm pain TECHNIQUE: Imaging protocol: Radiologic exam of the Right hand. Views: 3 or more views. COMPARISON: CR XR WRIST RT MIN 3V 11/26/2022 6:11 PM FINDINGS: Bones/joints: Osseous structures of the hand are without an acute process. Distal radioulnar joint and radiocarpal joints grossly normal. Carpus without fracture. Metacarpals and phalangeal without fracture or dislocation. No erosive changes or periarticular calcifications. Soft tissues: Normal. IMPRESSION: Normal hand. No fracture. No foreign body.
--- NOTE | 2022-11-26 18:28 | EXP.UTC ---
Discharge Plan Disposition Patient Disposition: Home, Self-Care Condition: Good Prescriptions Prescriptions: New ibuprofen [IBU] 800 mg tablet 800 mg PO Q8HP PRN (Reason: Moderate Pain) Qty: 30 0RF Referrals Follow up/Referrals: Terrance Johansen DO [Staff Physician] - See instructions Willy Dorsey MD [Primary Care Provider] - See instructions Activity Restrictions/Add. Instructions Additional Instructions/Restrictions: Rest the extremity, apply ice for 15 minutes as tolerated three or four times per day, Wear the alethea wrap for compression, Elevate the extremity as tolerated while you are resting. Take ibuprofen for pain. I sent in a prescription to your pharmacy. Follow up with Dr. Johansen (orthopedics) if you continue to have problems with this. I put in a referral but you need to call his office and schedule an appointment. Follow up with your regular doctor. GO TO THE ER FOR ANY WORSENING SYMPTOMS Clinical Impressions Clinical Impression: Contusion of forearm, left, Pain in left arm Instructions Patient Instructions: DI for Contusion, How to Apply an Elastic Wrap on Elbow Discharge ED Provider: Konrad Moore [facility] General Stated complaint: ao 11/26@0700 injured R arm Time Seen by Provider: 11/26/22 18:28 History of Present Illness Provider Complaint: He states that earlier today he fell and came down on his right forearm. He has had right forearm and wrist pain since then. Related Data Previous Rx's Medication Instructions Recorded ibuprofen 800 mg tablet (IBU) 800 mg PO Q8HP PRN Moderate Pain 11/26/22 #30 tabs Allergies Allergy/AdvReac Type Severity Reaction Status Date / Time No Known Allergies Allergy Verified 11/26/22 18:53 [facility] Disclaimer: The information contained in this section may have been updated after the patient was seen, as this information can be updated by other users. Medical History Chest pain Dizziness Dyspnea Ex-smoker Family history of heart disease HTN (hypertension) Nicotine vapor product user Palpitations Tachycardia Social History Smoking Status: Current every day smoker tobacco type: e-cigarettes alcohol intake: current substance use type: denies use current occupational status: employed and other Travel in the last 8 weeks: None household members: family housing: house current occupation: [employer] ROS Obtained: Yes All systems reviewed & no additional complaints except as documented Constitutional Constitutional: Denies chills and Denies fever(s) Eyes Eyes: Denies eye discharge ENT Ears, Nose, Mouth, and Throat: Denies dizziness, Denies otalgia and Denies sore throat Cardiovascular Cardiovascular: Denies chest pain Respiratory Respiratory: Denies shortness of breath, Denies chest congestion, Denies cough, Denies stridor and Denies wheezing Gastrointestinal Gastrointestingal: Denies nausea or vomiting Musculoskeletal Musculoskeletal: Reports as per HPI Integumentary/Breasts Skin/Breast: Denies redness, Denies rash and Denies wounds Neurologic Neurologic: Denies dizziness and Denies paresthesias Allergic/Immunologic Allergic/Immunologic: Denies wheezing Physical Exam General General appearance: alert and in no apparent distress Head Head exam: atraumatic, normocephalic and normal inspection Eye Eye exam: Present normal appearance, PERRL and EOMI ENT ENT exam: Present normal exam, normal oropharynx, mucous membranes moist, TM's normal bilaterally and normal external ear exam Neck Neck exam: Present normal inspection, full ROM and trachea midline; Absent meningismus or lymphadenopathy Chest Chest inspection: Present normal inspection and symmetric chest wall rise; Absent tenderness Respiratory Respiratory exam: Present normal lung sounds bilaterally; Absent respiratory distress Cardiovascular Cardiovasc
[2022-11-26 18:30] VITALS: RESP 20; TEMP 36.9; O2SAT 99; BMI 30.2
[2022-11-26 19:31] VITALS: BP 136/92; PULSE 78; RESP 20; TEMP 36.9; O2SAT 99
== END 2022-11-26 19:30 | disposition home or self-care (01) ==
PROVIDERS: Emergency Provider Nurse Practitioner Family; PCP Emergency Medicine
DX: S50.11XA Contusion of right forearm, initial encounter (principal); M79.631 Pain in right forearm; M25.531 Pain in right wrist; W19.XXXA Unspecified fall, initial encounter
CPT/HCPCS: 73080; 73090; 73110; 73130; 99213; G0463

== ENCOUNTER 2024-05-15 13:40 | Outpatient (CLI) | payer OTHER, SELFPAY ==
[2024-05-15 12:35] LABS: Basophils % 0.6 % (0.1-2.0); Eosinophils # 0.3 K/mm3 (0.0-0.4); Hematocrit 42.1 % (42.0-52.0); Hemoglobin 14.5 g/dL (14.1-18.0); Lymphocytes # 1.9 K/mm3 (0.7-4.5); Lymphocytes % 33.2 % (10-50); Mean Corpuscular HGB Conc 34.5 g/dL (31.8-35.4); Mean Corpuscular Hemoglobin 31.2 pg (27.0-31.2); Mean Corpuscular Volume 90.6 fl (80-94); Mean Platelet Volume 9.2 fl (7.4-10.4); Monocytes # 0.5 K/mm3 (0.1-1.0); Monocytes % 8.8 % (1.7-9.3); Neutrophils % 52.5 % (37.0-80.0); Platelet Count 219 K/mm3 (142-424); Red Blood Count 4.65 M/mm3 (4.60-6.20); Red Cell Distribution Width 13.8 % (11.5-17.5); White Blood Count 5.7 K/mm3 (4.8-10.8)
[2024-05-15 12:57] LABS: Alanine Aminotransferase 20 U/L (12-78); Albumin Level 3.8 g/dl (3.5-5.0); Albumin/Globulin Ratio 1.7 (1.1-1.8); Alkaline Phosphatase 52 U/L (38-126); Anion Gap 11.1 mEq/L (5-15); Aspartate Amino Transferase 26 U/L (17-59); Bilirubin,Total 0.3 mg/dl (0.2-1.3); Blood Urea Nitrogen 11 mg/dl (9-20); Calcium 9.3 mg/dl (8.4-10.2); Carbon Dioxide 25 mmol/L (22.0-30.0); Chloride 109 mmol/L (98-107); Chol/HDL Ratio 3.2 (1-3.5); Cholesterol 171 mg/dl (140-200); Estimated Glomerular Filt Rate 95 ml/min (>60); GFR (African American) 115 ML/MIN (>60); Globulin 2.3 g/dL (1.3-3.2); Glucose 73 mg/dl (74-100); HDL Cholesterol 53 mg/dl (40-60); Potassium 4.1 mmoL/L (3.5-5.1); Sodium 141 mmol/L (136-145); Total Protein,Serum 6.1 g/dl (6.3-8.2); Triglycerides 126 mg/dl (30-150); Uric Acid 6.3 mg/dl (3.5-8.5); VLDL Cholesterol 25 mg/dL (0-40)
[2024-05-15 13:08] LABS: Direct LDL Cholesterol 81.14 mg/dL (100-129)
[2024-05-15 13:12] LABS: 25-OH Vitamin D, Total 55.5 ng/mL (30-100)
[2024-05-15 13:29] LABS: Thyroid Stimulating Hormone 1.09 uIU/mL (0.465-4.68)
[2024-05-15 13:48] LABS: Vitamin B12 277 pg/mL (239-931)
[2024-05-15 15:14] LABS: Erythrocyte Sedimentation Rate 10 mm/hr (0-15)
[2024-05-16 07:28] LABS: RA Latex Turbid. 27.9 IU/mL (<14.0)
[2024-05-16 10:24] LABS: FSH 2.3 mIU/mL (1.5-12.4)
[2024-05-16 16:14] LABS: Antinuclear Antibodies, IFA Negative (.)
[2024-05-17 06:15] LABS: Zinc 99 ug/dL (44-115)
[2024-05-18 11:10] LABS: Free Testosterone (Direct) 13.3 pg/mL (8.7-25.1); Testosterone, Total, LC/MS 557.1 ng/dL (264.0-916.0)
== END 2024-05-15 23:59 | disposition home or self-care (01) ==
LOC: LAB.DROPOF 13:41
PROVIDERS: PCP Nurse Practitioner Family; Visit Provider Nurse Practitioner Family
DX: I10 Essential (primary) hypertension (principal); N52.9 Male erectile dysfunction, unspecified; M25.50 Pain in unspecified joint
CPT/HCPCS: 80050; 80053; 80061; 82306; 82607; 82626; 83001; 84443; 84550; 84630; 85025; 85651; 86038; 86431

== ENCOUNTER 2024-08-10 08:09 | Emergency (ER) | payer OTHER, SELFPAY ==
[2024-08-10 08:20] VITALS: BP 153/97; PULSE 87; RESP 20; TEMP 37.2; O2SAT 99; BMI 27.3
--- NOTE | 2024-08-10 08:28 | ED_ITS ---
Discharge Plan Disposition Patient Disposition: Home, Self-Care Condition: Good Prescriptions Prescriptions: New nitrofurantoin monohyd/m-cryst [Macrobid] 100 mg capsule 100 mg PO Q12H 7 Days Qty: 14 0RF Rx Instructions: must administer with a meal/food phenazopyridine [Pyridium] 200 mg tablet 200 mg PO Q8H 2 Days Qty: 6 0RF Referrals Follow up/Referrals: Rhoda Alexander APRN [Primary Care Provider] - See instructions Activity Restrictions/Add. Instructions Additional Instructions/Restrictions: *Increase fluids. Water not Soda or Tea *Start antibiotic immediately and be sure to take as ordered for the FULL length of time although you should start to see improvement over the next 48 hours *Pyridium as needed Remember this medication will turn your urine . This is normal but it will stain what ever it gets on *You should not use Pyridium for more than 48 hours. If so , follow up with your primary physician to review urine culture and ensure that antibiotic is adequate for infection *Be SURE to follow up anytime for new or worsening symptoms with your family doctor. AND in 48 hours for urine culture results with your family doctor, if you do not have a doctor then you may call back to the [facility] for urine culture results and further treatment. We do recommend that you choose and establish care with a Primary Care Physician. ?AND follow up with them ?in 10-14 days to repeat UA to ensure infection is resolved and blood no longer present *Be sure to let your PCP know that we sent urine cultures from the [facility] so they can follow up to ensure that you area the on the correct antibiotic Call your doctor office and make appointment for 48 hours (2 days from today) ?to follow up and get the results of your urine culture and further treatment Your other testing should be back in the next 3-5 days Make sure to follow up with your Family Doctor if anything is positive Clinical Impressions Clinical Impression: UTI symptoms Instructions Patient Instructions: Nitrofurantoin, Phenazopyridine Print Language Print Language: German Discharge ED Provider[place]ashonda Mckin[place] [facility] [place] General Stated complaint: pain when urinating Mode of Arrival: Ambulatory Source of Information: Patient Limitations: No Limitations Time Seen by Provider: 08/10/24 08:28 Description of Symptoms (Recalled from Triage Doc. by RN): PATIENT C/O PAIN AND URGENCY WITH URINATION, TROUBLE EMPTYING BLADDER, AND PELVIC PAIN THAT STARTED APPROX 3 WEEKS AGO HEENT Symptoms (Recalled from RN notes): No Resp Symptoms (Recalled from RN notes): No Skin Symptoms (Recalled from RN notes): No MS Symptoms (Recalled from RN notes): No Functional Status (Recalled from RN notes): WNL History of Present Illness Provider Complaint: Patient states that he has been having burning with urination, feeling of urgency and frequency and pressure like feeling in his lower abdomen/pelvic area like he still has to go, States had symptoms about 3 weeks ago and then it went away, but now has come back, Denies pain in scrotum denies fever, denies chills, denies hx of kidney stones Related Data Previous Rx's ?Medication ?Instructions ?Recorded nitrofurantoin 100 mg PO Q12H 7 days #14 caps 08/10/24 monohydrate/macrocrystals 100 mg capsule (Macrobid) phenazopyridine 200 mg tablet 200 mg PO Q8H pain 2 days #6 tabs 08/10/24 (Pyridium) Allergies Allergy/AdvReac Type Severity Reaction Status Date / Time No Known Allergies Allergy Verified 05/12/24 10:09 Worker's Comp Is this a Worker's Comp case?: No [facility] Disclaimer: The information contained in this section may have been updated after the patient was seen, as this information can be updated by other users. Medical History HTN (hypertension) Family history of heart disease Palpitations Nicotine vapor product user Ex-smoker Dizziness Tachycardia Dyspnea Chest pain Social History Smoking Status: Current every day smoker tobacco type: e-cigarettes alcohol intake: current alcohol intake frequency: a few times a week substance use type: denies use current occupational status: employed and other Travel in the last 8 weeks: None household members: family housing: house current occupation: [employer] ROS Obtained: Yes All systems reviewed & no additional complaints except as documented and Yes Systems reviewed as appropriate & no additional complaints except as documented Constitutional Constitutional: Reports system reviewed and no additional complaints, except as documented and Reports as per HPI ENT Ears, Nose, Mouth, and Throat: Reports system reviewed and no additional complaints, except as documented and Reports as per HPI Cardiovascular Cardiovascular: Reports system reviewed and no additional complaints, except as documented and Reports as per HPI Respiratory Respiratory: Reports system reviewed and no additional complaints, except as documented and Reports as per HPI Gastrointestinal Gastrointestingal: Reports system reviewed and no additional complaints, except as documented and as per HPI Genitourinary Male Genitourinary: Reports system reviewed and no additional complaints, except as documented, Reports as per HPI, Denies flank pain, Denies genital pain, Denies oliguria, Denies penile discharge, Denies scrotal swelling, Denies testicular pain, Reports urinary frequency, Denies urinary incontinence and Reports urinary urgency Musculoskeletal Musculoskeletal: Reports system reviewed and no additional complaints, except as documented and Reports as per HPI Integumentary/Breasts Skin/Breast: Reports system reviewed and no additional complaints, except as documented and Reports as per HPI Neurologic Neurologic: Reports system reviewed and no additional complaints, except as documented and Reports as per HPI Physical Exam General General appearance: alert and in no apparent distress ENT ENT exam: Present mucous membranes moist Respiratory Respiratory exam: Present normal lung sounds bilaterally; Absent respiratory d istress or wheezes Cardiovascular Cardiovascular exam: Present regular rate, normal rhythm and normal heart sounds Abdominal Exam Abdominal exam: Present soft and normal bowel sounds; Absent distention or tenderness Neurological Exam Neurological exam: Present alert, oriented X3 and normal gait Medical Decision Making Medical Records Screening: Per USPSTF and CDC recommendations, given the prevalence of disease in our region, it is our hospital?s policy to screen for HIV and viral Hepatitis for all patients aged 18 and over and those with ongoing risk factors. Estuardo Inquiry Pt receiving controlled substance: No Estuardo was queried for this patient: No Vital Signs: 08/10/24 08:20 Temperature 98.9 F Temperature Source Oral Pulse Rate [Left Brachial] 87 Respiratory Rate 20 Blood Pressure [Left Arm] 153/97 H Blood Pressure Mean [Left Arm] 115 Blood Pressure Source [Left Arm] Automatic Cuff Blood Pressure Position [Left Arm] Sitting 02 Sat by Pulse Oximetry 99 Oxygen Delivery Method Room Air Lab Data Lab results reviewed: Yes I reviewed the patient's lab results. Orders (Tests/Meds): ORDERS Category Date Time Status Urinalysis and Microscopic Stat Lab 08/10/24 08:23 Ordered
[2024-08-10 08:32] LABS: Microscopic, Urine URINE MICROSCOPIC (MICROSCOPIC)
[2024-08-10 08:36] LABS: Appearance,Urine CLEAR (Clear); Bilirubin,Urine Negative (Negative); Blood, Urine Negative (Negative); Color,Urine YELLOW (Yellow); Glucose,Urine (UA) Negative (Negative); Ketones,Urine Negative (Negative); Leukocyte Esterase,Urine TRACE (Negative); Nitrate,Urine Negative (Negative); Protein,Urine Negative (Negative); Urobilinogen,Urine 0.2 EU/dl (0.2)
[2024-08-10 08:43] LABS: Bacteria,Urine Trace /lpf; Squamous Epithelial Cell,Urine Occasional #/hpf (0-5)
[2024-08-10 09:11] VITALS: BP 153/97; PULSE 87; RESP 20; TEMP 37.2; O2SAT 99
[2024-08-12 14:11] LABS: Neisseria gonorrhoeae, NAA Negative (Negative)
[2024-08-12 16:19] LABS: Trichomonas Vaginalis, NAA Negative (Negative)
== END 2024-08-10 09:15 | disposition home or self-care (01) ==
PROVIDERS: Emergency Provider Nurse Practitioner; PCP Nurse Practitioner Family
DX: N39.0 Urinary tract infection, site not specified (principal)
CPT/HCPCS: 81001; 87491; 87591; 87661; 99213; G0381

== ENCOUNTER 2024-10-05 08:21 | Emergency (ER) | payer OTHER, SELFPAY ==
[2024-10-05 08:35] VITALS: BP 140/95; PULSE 91; RESP 21; TEMP 37.1; O2SAT 99; BMI 24.3
--- NOTE | 2024-10-05 08:49 | ED_ITS ---
Discharge Plan Disposition Patient Disposition: Home, Self-Care Condition: Good Prescriptions Prescriptions: New amoxicillin 875 mg tablet 875 mg PO Q12H Qty: 20 0RF guaifenesin [Mucinex] 1,200 mg tablet extended release 12hr 1,200 mg PO Q12H Qty: 20 0RF benzonatate 100 mg capsule 100 mg PO TID PRN (Reason: cough) Qty: 30 0RF methylprednisolone [Medrol (Eber)] 4 mg tablets,dose pack See Rx Instructions .Route .COMPLEX 6 Days Qty: 21 0RF Rx Instructions: taper pack; No Action nitrofurantoin monohyd/m-cryst [Macrobid] 100 mg capsule 100 mg PO Q12H 7 Days Qty: 14 0RF Rx Instructions: must administer with a meal/food phenazopyridine [Pyridium] 200 mg tablet 200 mg PO Q8H 2 Days Qty: 6 0RF Referrals Follow up/Referrals: Rhoda Alexander APRN [Primary Care Provider] - See instructions Activity Restrictions/Add. Instructions Additional Instructions/Restrictions: *Monitor Temp, Over the counter Motrin or Tylenol as directed/as needed Tylenol every 4 hours and Motrin every 6 hours (as long as your family doctor has told you that you can take it) for fever or pain. and straight to ER if unable to lower temp less than 101.0 after medication given *Warm salt water gargles may help to soothe the throat *Throat Lozenges? *Warm fluids like tea with honey may help to soothe the throat? *Sleep elevated *Humidifier/Vaporizer *Flonase 2 sprays in each nostril daily but be aware that it may take 2-3 days before you notice improvement *Bromfed may cause drowsiness. Know how it effects you (your child) before driving, caring for small child, or sending your child to school. Not other antihistamines/allergy medications while taking bromfed Your throat swab was sent for culture. Those results are typically sent to your primary care. Be sure to follow up in 2-3 days with your family doctor/primary care physician if no improvement so they can review those result and treat if necessary. If you don?t have a primary care doctor, I recommend you get one but in the mean time, you will have to return to a walk in clinic Follow up IMMEDIATELY for new or worsening symptoms or no Noticeable improvement over the next 48-72 hours. 911 for difficulty breathing or swallowing Clinical Impressions Clinical Impression: Strep throat Stand Alone Forms Stand Alone Forms: Work/School Release Instructions Patient Instructions: DI for Strep Throat, Strep Throat Print Language Print Language: Indonesian Discharge ED Provider: [facility] [place] HPI General Stated complaint: congestion, cough, fever Mode of Arrival: Ambulatory Source of Information: Patient Limitations: No Limitations Time Seen by Provider: 10/05/24 08:49 Description of Symptoms (Recalled from Triage Doc. 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, States he has been having sinus congestion and pressure, sore throat, chest congestion and cough States today he wasnt feeling any better so he came in to get checked Related Data Previous Rx's ?Medication ?Instructions ?Recorded nitrofurantoin 100 mg PO Q12H 7 days #14 caps 08/10/24 monohydrate/macrocrystals 100 mg capsule (Macrobid) phenazopyridine 200 mg tablet 200 mg PO Q8H pain 2 days #6 tabs 08/10/24 (Pyridium) amoxicillin 875 mg tablet 875 mg PO Q12H #20 tabs 10/05/24 benzonatate 100 mg capsule 100 mg PO TID PRN cough #30 caps 10/05/24 guaifenesin 1,200 mg tablet, 1,200 mg PO Q12H #20 tabs 10/05/24 extended release 12 hr (Mucinex) methylprednisolone 4 mg tablets in See Rx Instructions .Route 10/05/24 a dose pack (Medrol (Eber)) .COMPLEX 6 days #21 tabs Allergies Allergy/AdvReac Type Severity Reaction Status Date / Time No Known Allergies Allergy Verified 05/12/24 10:09 Worker's Comp Is this a Worker's Comp case?: No [facility] Disclaimer: The information contained in this section may have been updated after the patient was seen, as this information can be updated by other users. Medical History HTN (hypertension) Family history of heart disease Palpitations Nicotine vapor product user Ex-smoker Dizziness Tachycardia Dyspnea Chest pain Social History Smoking Status: Current every day smoker tobacco type: e-cigarettes alcohol intake: current alcohol intake frequency: a few times a week substance use type: denies use current occupational status: employed and other Travel in the last 8 weeks: None household members: family housing: house current occupation: [employer] ROS Obtained: Yes All systems reviewed & no additional complaints except as documented and Yes Systems reviewed as appropriate & no additional complaints except as documented Constitutional Constitutional: Reports system reviewed and no additional complaints, except as documented, Reports as per HPI, Reports fever(s) and Reports headache(s) ENT Ears, Nose, Mouth, and Throat: Reports system reviewed and no additional complaints, except as documented, Reports as per HPI, Reports headache(s), Reports sinus pain, Reports sinus pressure and Reports sore throat Cardiovascular Cardiovascular: Reports system reviewed and no additional complaints, except as documented and Reports as per HPI Respiratory Respiratory: Reports system reviewed and no additional complaints, except as do cumented, Reports as per HPI, Reports chest congestion and Reports cough Gastrointestinal Gastrointestingal: Reports system reviewed and no additional complaints, except as documented and as per HPI Neurologic Neurologic: Reports headache(s) Physical Exam General General appearance: alert and in no apparent distress ENT ENT exam: Present mucous membranes moist Expanded ENT Exam Nose exam: Present sinus tenderness Throat exam: Present tonsillar erythema; Absent tonsillomegaly or tonsillar exudate Respiratory Respiratory exam: Present normal lung sounds bilaterally; Absent respiratory distress or wheezes Cardiovascular Cardiovascular exam: Present regular rate, normal rhythm and normal heart sounds Abdominal Exam Abdominal exam: Present soft and normal bowel sounds; Absent distention or tenderness Neurological Exam Neurological exam: Present alert, oriented X3 and normal gait Medical Decision Making Medical Records Screening: Per USPSTF and CDC recommendations, given the prevalence of disease in our region, it is our hospital?s policy to screen for HIV and viral Hepatitis for all patients aged 18 and over and those with ongoing risk factors. Estuardo Inquiry Pt receiving controlled substance: No Estuardo was queried for this patient: No Vital Signs: 10/05/24 08:35 Temperature 98.7 F Temperature Source Oral Pulse Rate [Left Brachial] 91 H Respiratory Rate 21 Blood Pressure [Left Arm] 140/95 H Blood Pressure Mean [Left Arm] 110 Blood Pressure Source [Left Arm] Automatic Cuff Blood Pressure Position [Left Arm] Sitting 02 Sat by Pulse Oximetry 99 Oxygen Delivery Method Room Air Lab Data Lab results reviewed: Yes I reviewed the patient's lab results.
[2024-10-05 08:58] VITALS: BP 140/95; PULSE 91; RESP 21; TEMP 37.1; O2SAT 99
[2024-10-05 08:58] LABS: UTC Influenza A Antigen Negative (Negative); UTC Influenza B Antigen Negative (Negative)
[2024-10-05 08:58] LABS: UTC Strep Screen (Rapid) Positive (Negative)
== END 2024-10-05 09:00 | disposition home or self-care (01) ==
PROVIDERS: Emergency Provider Nurse Practitioner; PCP Nurse Practitioner Family
DX: J02.0 Streptococcal pharyngitis (principal); R06.02 Shortness of breath; R05.9 Cough, unspecified; R50.9 Fever, unspecified; M79.10 Myalgia, unspecified site; R09.81 Nasal congestion; J02.9 Acute pharyngitis, unspecified; R51.9 Headache, unspecified
CPT/HCPCS: 87804; 87880; 99212; G0381

== ENCOUNTER 2025-05-27 10:40 | Emergency (ER) | payer OTHER, SELFPAY ==
[2025-05-27] VITALS (7 sets, daily range): BP systolic 121–142; BP diastolic 79–97; PULSE 61–79; RESP 14; TEMP 37.1–37.2; O2SAT 98–100; BMI 27.3
--- NOTE | 2025-05-27 11:35 | XR_ITS ---
PROCEDURE INFORMATION: Exam: XR Right Hand Exam date and time: 05/27/2025 11:53 AM Age: 39 years old Clinical indication: Other: R/O fb TECHNIQUE: Imaging protocol: Radiologic exam of the right hand. Views: 3 or more views. COMPARISON: CR XR HAND RT MIN 3V 11/26/2022 6:13 PM FINDINGS: Bones/joints: There is no evidence of acute fracture.There is no evidence of malalignment or dislocation. Soft tissues: No foreign body identified. IMPRESSION: 1. There is no evidence of acute fracture.There is no evidence of malalignment or dislocation. 2. No foreign body identified.
--- NOTE | 2025-05-27 11:36 | ED_ITS ---
<Statement entered by Mana Sarabia DO - 05/29/25 15:21> I was consulted by the MOUNIKA, and we discussed the complexity of problems being addressed. I approve the treatment and management plan for this patient's care in the emergency department, thus performing a substantial portion of the medical decision making. Mana Sarabia DO Discharge Plan Disposition Patient Disposition: Home, Self-Care Prescriptions Prescriptions: No Action nitrofurantoin monohyd/m-cryst [Macrobid] 100 mg capsule 100 mg PO Q12H 7 Days Qty: 14 0RF Rx Instructions: must administer with a meal/food phenazopyridine [Pyridium] 200 mg tablet 200 mg PO Q8H 2 Days Qty: 6 0RF amoxicillin 875 mg tablet 875 mg PO Q12H Qty: 20 0RF guaifenesin [Mucinex] 1,200 mg tablet extended release 12hr 1,200 mg PO Q12H Qty: 20 0RF benzonatate 100 mg capsule 100 mg PO TID PRN (Reason: cough) Qty: 30 0RF methylprednisolone [Medrol (Eber)] 4 mg tablets,dose pack See Rx Instructions .Route .COMPLEX 6 Days Qty: 21 0RF Rx Instructions: taper pack; Referrals Follow up/Referrals: Rhoda Alexander APRN [Primary Care Provider, Medical] - See instructions Activity Restrictions/Add. Instructions Additional Instructions/Restrictions: Today you had sutures placed in your hand. Please keep the dressing on for 24 hours. Have the sutures removed in 7 days. Do not submerge in any bodies of water like a pool, ndiaye or ocean for 7 days. If you develop any signs of infection like redness, swelling, drainage, red streaking come back to the ED im mediately. Please follow-up with your PCP as needed. Clinical Impressions Clinical Impression: Laceration Instructions Patient Instructions: DI for Laceration Repair Print Language Print Language: Turkmen Discharge ED Provider: Mana Sarabia General Adult HPI <Mana Sarabia DO - Last Filed: 05/29/25 17:56> General Chief complaint: Wound/Laceration Stated complaint: fell onto glass, right hand Time Seen by Provider: 05/27/25 11:31 Mode of Arrival: Ambulatory Source of Information: Patient Description of Symptoms (Recalled from ER Triage Doc. by RN): pt presents to the ED with a laceration to his right index finger. pt reports that he was standing up on a table when he got unsteady and tried to catch himself by grabbing a glass lamp. pt has a scratch from the glass on pt's left thumb. Last tetanus shot unknown. Related Data Previous Rx's ?Medication ?Instructions ?Recorded nitrofurantoin 100 mg PO Q12H 7 days #14 ca ps 08/10/24 monohydrate/macrocrystals 100 mg capsule (Macrobid) phenazopyridine 200 mg tablet 200 mg PO Q8H pain 2 day s #6 tabs 08/10/24 (Pyridium) amoxicillin 875 mg tablet 875 mg PO Q12H #20 tabs 09/2424 benzonatate 100 mg capsule 100 mg PO TID PRN cough #30 caps 10/05/24 guaifenesin 1,200 mg tablet, 1,200 mg PO Q12H #20 tabs 10/05/24 extended release 12 hr (Mucinex) methylprednisolone 4 mg tablets in See Rx Instructions .Route 10/05/24 a dose pack (Medrol (Eber)) .COMPLEX 6 days #21 tabs Allergies Allergy/AdvReac Type Severity Reaction Status Date / Time No Known Allergies Allergy Verified 05/12/24 10:09 <Clementina Meadows APRN - Last Filed: 05/27/25 19:35> History of Present Illness HPI narrative: patient is a 39-year-old male no significant PMHx who presents to the ED with complaints of a lack on his right palmar area approximately 1 inch. Patient states he was standing on a desk at school fixing a light when he fell, cut his hand on glass. [facility] <Mana Sarabia DO - Last Filed: 05/29/25 17:56> [facility] Disclaimer: The information contained in this section may have been updated after the patient was seen, as this information can be updated by other users. Medical History HTN (hypertension) Family history of heart disease Palpitations Nicotine vapor product user Ex-smoker Dizziness Tachycardia Dyspnea Chest pain Social History Smoking Status: Current every day smoker tobacco type: e-cigarettes alcohol intake: current alcohol intake frequency: a few times a week substance use type: denies use current occupational status: employed and other Travel in the last 8 weeks?: None household members: family housing: house current occupation: [employer] Have you lived/traveled outside [place] in past 30 days?: No Contact w/someone who lives/traveled outside US past 30 days?: No Exposure to someone with infectious disease in past 14 days?: No Do you have a fever (greater than 100.4 F or 38 C)?: No Have you tested positive for COVID-19?: No Exposed to someone with COVID-19 in past 14 days?: No Do you have a sore throat?: No Do you have a cough?: No Do you have any weakness?: No Do you have any diarrhea?: No Are you experiencing any unusual bleeding?: No Do you have any muscle aches/pain?: No Do you have any abdominal pain?: No Are you experiencing loss of taste or smell?: No Other Medical History Have you received the Flu Vaccine for this season: Yes Have you received the Pneumonia Vaccine: No <Clementina Meadows APRN - Last Filed: 05/27/25 19:35> ROS Obtained: Yes Systems reviewed as appropriate & no additional complaints except as documented Physical Exam <Clementina Meadows APRN - Last Filed: 05/27/25 19:35> General General appearance: alert Head Head exam: atraumatic Neck Neck exam: Present full ROM Respiratory Respiratory exam: Present normal lung sounds bilaterally and respiratory distress Cardiovascular Cardiovascular exam: Present regular rate Extremities Exam Extremities exam: Present full ROM and normal capillary refill Neurological Exam Neurological exam: Present alert and oriented X3 Skin Skin exam: Present other (1 inch lac to R hand palmar aspect ) Medical Decision Making <Mana Sarabia DO - Last Filed: 05/29/25 17:56> Medical Records Screening: Per USPSTF and CDC recommendations, given the prevalence of disease in our region, it is our hospital?s policy to screen for HIV and viral Hepatitis for all patients aged 18 and over and those with ongoing risk factors. Vital Signs: 05/27/25 10:52 05/27/25 10:54 05/27/25 10:58 Temperature 99 F 99 F Temperature Source Oral Oral Pulse Rate 77 75 Pulse Rate [Right] 75 Respiratory Rate 14 14 Blood Pressure 142/97 H 142/97 H Blood Pressure [Right Arm] 142/97 H Blood Pressure Mean [Right Arm] 112 Blood Pressure Source Automatic Cuff Blood Pressure Source [Right Arm] Automatic Cuff Blood Pressure Position Supine Blood Pressure Position [Right Arm] Supine 02 Sat by Pulse Oximetry 98 99 99 Oxygen Delivery Method Room Air Room Air 05/27/25 11:00 05/27/25 11:32 05/27/25 11:59 Temperature Temperature Source Pulse Rate 69 79 70 Pulse Rate [Right] Respiratory Rate Blood Pressure 124/88 124/88 121/79 Blood Pressure [Right Arm] Blood Pressure Mean [Right Arm] Blood Pressure Source Blood Pressure Source [Right Arm] Blood Pressure Position Blood Pressure Position [Right Arm] 02 Sat by Pulse Oximetry 98 98 100 Oxygen Delivery Method 05/27/25 12:42 Temperature 98.8 F Temperature Source Oral Pulse Rate 61 Pulse Rate [Right] Respiratory Rate 14 Blood Pressure 124/95 H Blood Pressure [Right Arm] Blood Pressure Mean [Right Arm] Blood Pressure Source Automatic Cuff Blood Pressure Source [Right Arm] Blood Pressure Position Supine Blood Pressure Position [Right Arm] 02 Sat by Pulse Oximetry Oxygen Delivery Method Room Air Orders (Tests/Meds): ED MEDICATIONS Discontinued Medications Generic Name Dose Route Start Last Admin Trade Name Freq PRN Reason Stop Dose Admin Lidocaine HCl 10 ml 05/27/25 12:47 05/27/25 12:47 Lidocaine 1% 10ml Mdv IJ 05/27/25 12:48 10 ml ONCE ONE Administration Tetanus/Reduced Diphtheria/Acell Pertussis 0.5 ml 05/27/25 11:35 05/27/25 12:00 Tet/Diphth/Pert-Adult 0.5ml Syringe IM 05/27/25 11:36 0.5 ml .ONCE ONE Administration ORDERS Category Date Time Status Hand XR right minimum 3 views [XR hand RT min 3V] Stat Exams 05/27/25 11:35 Completed Medical Decision Narrative: In summary, patient is a 39-year-old male no significant PMHx who presents to the ED with complaints of a lack on his right palmar area approximately 1 inch. Patient states he was standing on a desk at school fixing a light when he fell, cut his hand on glass. Denies any other complaints at this time. Denies fever, chills, chest pain, shortness of breath, headache, posterior neck pain, visual disturbances. Upon initial evaluation, patient is alert and oriented, hemodynamically stable, 1 inch lag noted to the right palmar aspect. No foreign body noted. X-ray of the hand was obtained which was reviewed and interpreted by myself and showed no acute foreign body, no fracture. Differentials include but not limited to:Fracture, foreign body, laceration, arterial injury, vascular injury, amongst others Procedure performed, patient's wound was soaked in Hibiclens. 1% lidocaine used to inject 1 mL around the laceration. Sterile procedure performed. 4 sutures of 4-0 Ethilon placed in the laceration, patient tolerated this procedure well. Discussed with him that he will need to keep the dressing on for 24 hours. After that, he may wash with normal soap and water. We discussed that he will n eed to return to the ED to have the sutures removed in 7 days. I discussed with him do not submerge in water, do not swim in ndiaye or ocean. Discussed follow-up with PCP. Discussed return precautions to the ED. <Clementina Meadows, HEAD SCORER - Last Filed: 05/27/25 19:35> Estuardo Inquiry Pt receiving controlled substance: No Vital Signs: 05/27/25 10:52 05/27/25 10:54 05/27/25 10:58 Temperature 99 F 99 F Temperature Source Oral Oral Pulse Rate 77 75 Pulse Rate [Right] 75 Respiratory Rate 14 14 Blood Pressure 142/97 H 142/97 H Blood Pressure [Right Arm] 142/97 H Blood Pressure Mean [Right Arm] 112 Blood Pressure Source Automatic Cuff Blood Pressure Source [Right Arm] Automatic Cuff Blood Pressure Position Supine Blood Pressure Position [Right Arm] Supine 02 Sat by Pulse Oximetry 98 99 99 Oxygen Delivery Method Room Air Room Air 05/27/25 11:00 05/27/25 11:32 05/27/25 11:59 Temperature Temperature Source Pulse Rate 69 79 70 Pulse Rate [Right] Respiratory Rate Blood Pressure 124/88 124/88 121/79 Blood Pressure [Right Arm] Blood Pressure Mean [Right Arm] Blood Pressure Source Blood Pressure Source [Right Arm] Blood Pressure Position Blood Pressure Position [Right Arm] 02 Sat by Pulse Oximetry 98 98 100 Oxygen Delivery Method 05/27/25 12:42 Temperature 98.8 F Temperature Source Oral Pulse Rate 61 Pulse Rate [Right] Respiratory Rate 14 Blood Pressure 124/95 H Blood Pressure [Right Arm] Blood Pressure Mean [Right Arm] Blood Pressure Source Automatic Cuff Blood Pressure Source [Right Arm] Blood Pressure Position Supine Blood Pressure Position [Right Arm] 02 Sat by Pulse Oximetry Oxygen Delivery Method Room Air Orders (Tests/Meds): ED MEDICATIONS Discontinued Medications Generic Name Dose Route Start Last Admin Trade Name An PRN Reason Stop Dose Admin Lidocaine HCl 10 ml 05/27/25 12:47 05/27/25 12:47 Lidocaine 1% 10ml Mdv IJ 05/27/25 12:48 10 ml ONCE ONE Administration Tetanus/Reduced Diphtheria/Acell Pertussis 0.5 ml 05/27/25 11:35 05/27/25 12:00 Tet/Diphth/Pert-Adult 0.5ml Syringe IM 05/27/25 11:36 0.5 ml .ONCE ONE Administration ORDERS Category Date Time Status Hand XR right minimum 3 views [XR hand RT min 3V] Stat Exams 05/27/25 11:35 Completed Medical Decision Narrative: In summary, patient is a 39-year-old male no significant PMHx who presents to the ED with complaints of a lack on his right palmar area approximately 1 inch. Patient states he was standing on a desk at school fixing a light when he fell, cut his hand on glass. Denies any other complaints at this time. Denies fever, chills, chest pain, shortness of breath, headache, posterior neck pain, visual disturbances. Upon initial evaluation, patient is alert and oriented, h emodynamically stable, 1 inch lag noted to the right palmar aspect. No foreign body noted. Procedure performed, patient's wound was soaked in Hibiclens. 1% lidocaine used to inject 1 mL around the laceration. Sterile procedure performed. 4 sutures of 4-0 Ethilon placed in the laceration, patient tolerated this procedure well. Discussed with him that he will need to keep the dressing on for 24 hours. After that, he may wash with normal soap and water. We discussed that he will need to return to the ED to have the sutures removed in 7 days. I discussed with him do not submerge in water, do not swim in ndiaye or ocean. Discussed follow-up with PCP. Discussed return precautions to the ED. Critical Care <Clemnetina Meadows APRN - Last Filed: 05/27/25 19:35> Critical Care Time Critical Care Time: No
[2025-05-27] MEDS: TET/DIPHTH/PERT-ADULT 0.5ML SYRINGE 0.5 ML IM (12:00)
[2025-05-27] MEDS: LIDOCAINE 1% 10ML MDV 10 ML IJ (12:47)
== END 2025-05-27 12:48 | disposition home or self-care (01) ==
PROVIDERS: Emergency Provider Student in an Organized Health Care Education/Training Program; PCP Nurse Practitioner Family
DX: S61.411A Laceration without foreign body of right hand, initial encounter (principal); W18.02XA Striking against glass with subsequent fall, initial encounter; I10 Essential (primary) hypertension; F17.210 Nicotine dependence, cigarettes, uncomplicated; Z23 Encounter for immunization
CPT/HCPCS: 12001; 73130; 90471; 90715; 99283